=== PATIENT | male | born 1995 | race Two or more races ===

== ENCOUNTER 2019-06-19 01:04 | Emergency (ER) | payer MEDICAID, OTHER ==
[~2019-06-19] VITALS: Ht 177.8 cm; Wt 79.4 kg
[2019-06-19 01:04] VITALS: BP 127/76
== END 2019-06-19 03:29 | disposition home or self-care (01) ==
LOC: ER 01:07
DX: J40 Bronchitis, not specified as acute or chronic (principal); F12.90 Cannabis use, unspecified, uncomplicated

== ENCOUNTER 2020-07-10 07:02 | Emergency (ER) | payer MEDICAID, OTHER ==
[~2020-07-10] VITALS: Ht 177.8 cm; Wt 81.6 kg
--- NOTE | 2020-07-10 07:19 | NUR ---
DR PETERS AT BED SIDE
--- NOTE | 2020-07-10 07:41 | NUR ---
US at Bedside.
[2020-07-10 08:21] LABS: BILIRUBIN,URINE SMALL (NEGATIVE); COLOR,URINE DARK YELLOW (YELLOW); LEUKOCYTE ESTERASE ,URINE Negative (NEGATIVE); NITRITE, URINE Negative (NEGATIVE); PROTEIN,URINE 30 mg/dl (NEGATIVE); UGLUCOSE Negative (NEGATIVE)
[2020-07-10 08:31] LABS: BACTERIA,URINE Rare /HPF (None Seen); RBC,URINE NONE SEEN /HPF (0-2); SQUAMOUS EPITHELIAL CELL,UR Rare /HPF (None Seen); WBC,URINE 0-2 /HPF (0-3)
[2020-07-10] MEDS ORDERED: LORA10TA7 PO (08:49)
[2020-07-10] MEDS ORDERED: DOXY50CA2 PO (08:49)
[2020-07-10] MEDS ORDERED: VALA100026 PO (08:49)
[2020-07-10] MEDS ORDERED: CEFTRIAXONE 1 G VIAL ONE (08:56)
[2020-07-10] MEDS ORDERED: LIDOCAINE /MPF 1% VIAL 5 ML VIAL ONE (08:56)
[2020-07-10 09:04] VITALS: BP 121/75
[2020-07-10] MEDS: CEFTRIAXONE 500 MG VIAL IM ONE (09:04)
== END 2020-07-10 09:05 | disposition home or self-care (01) ==
LOC: ER 07:07
DX: A64 Unspecified sexually transmitted disease (principal); B00.9 Herpesviral infection, unspecified; F17.200 Nicotine dependence, unspecified, uncomplicated; Z79.899 Other long term (current) drug therapy
CPT/HCPCS: 76870; 81001; 87086; 87491; 87591; 96372; 99284; J0696; J3490

== ENCOUNTER 2021-12-01 17:33 | Emergency (ER) | payer OTHER ==
[~2021-12-01] VITALS: Ht 177.8 cm; Wt 79.4 kg
[~2021-12-01 17:33] MED LIST: DOXY50CA2 PO; LORA10TA7 PO; VALA100026 PO
--- NOTE | 2021-12-01 17:40 | NUR ---
CALLED TO TRIAGE,NOT READY
[2021-12-01 17:47] VITALS: BP 140/74
--- NOTE | 2021-12-01 18:55 | NUR ---
Patient discharged to home in stable condition. Written and verbal after care instructions given. Patient verbalizes understanding of instruction.
== END 2021-12-01 18:56 | disposition home or self-care (01) ==
LOC: ER 17:54
DX: R05.9 Cough, unspecified (principal); Z87.891 Personal history of nicotine dependence; Z28.310 Unvaccinated for COVID-19; Z20.822 Contact with and (suspected) exposure to COVID-19
CPT/HCPCS: 71045; 99284; C9803; U0003